=== PATIENT | male | born 1945 | race Asian ===

== ENCOUNTER 2018-09-19 08:27 | Inpatient (IN) | payer OTHER ==
[2018-09-19 08:51] VITALS: BMI 19.6
--- NOTE | 2018-09-19 09:26 | HP ---
CIWA Score Nausea/Vomitin Muscle Tremors: 3 Anxiety: 4-Mod. Anxious/Guarded Agitation: 0-Normal Activity Paroxysmal Sweats: No Perspiration Orientation: 0-Oriented Tacttile Disturbances: 0-None Auditory Disturbances: 0-None Visual Disturbances: 0-None Headache: 2-Mild CIWA-Ar Total Score: 12 - Admission Criteria [facility]ASAS Guidelines: Admission for Medically Managed Detox: Requires at least one of the followin. CIWA greater than 12 2. Seizures within the past 24 hours 3. Delirium tremens within the past 24 hours 4. Hallucinations within the past 24 hours 5. Acute intervention needed for co occurring medical disorder 6. Acute intervention needed for co occurring psychiatric disorder 7. Severe withdrawal that cannot be handled at a lower level of care (continued vomiting, continued diarrhea, abnormal vital signs) requiring intravenous medication and/or fluids 8. Patient presents the following: CIWA greater than 12 Admission Criteria Met: Admission criteria met Admission ROS [facility] - HPI Chief Complaint: The says I drink too much, I need help - she is right, I am here to stop drinking. I am a drunkard. Allergies/Adverse Reactions: Allergies Allergy/AdvReac Type Severity Reaction Status Date / Time No Known Allergies Allergy Verified 09/19/18 09:07 History of Present Illness: 73 yo gentleman here for detox from alcohol. First time in detox. No seizures but does have black outs. States he is lonely where he now lives and drinks. States he does fall 'alot' from drinking. States he drinks first thing in the morning so he doesn't shake too much or feel sick. Exam Limitations: Clinical Condition - Ebola screening Have you been sick,other than usual withdrawal symptoms: No - Review of Systems Constitutional: Loss of Appetite, Malaise, Changes in sleep, Unintentional Wgt. Loss EENT: reports: Blurred Vision Respiratory: reports: SOB with Exertion Cardiac: reports: No Symptoms Reported GI: reports: Poor Appetite, Poor Fluid Intake, Indigestion, Abdominal cramping : reports: Frequency Musculoskeletal: reports: No Symptoms Reported Integumentary: reports: Dryness Neuro: reports: Headache, Tremors Endocrine: reports: No Symptoms Reported Hematology: reports: No Symptoms Reported Psychiatric: reports: Judgement Intact, Mood/Affect Appropiate, Orientated x3, Anxious Other Systems: Reviewed and Negative Patient History - Patient Medical History Hx Asthma: No Hx Chronic Obstructive Pulmonary Disease (COPD): Yes Hx Cancer: No Hx Cardiac Disorders: No Hx Hypertension: No Hx Hypercholesterolemia: No Hx Pacemaker: No HX Cerebrovascular Accident: No Hx Seizures: No Hx Diabetes: No Hx Gastrointestinal Disorders: No Hx Liver Disease: Yes ('there might be something wrong there from the drinking') Hx Genitourinary Disorders: No Hx Sexually Transmitted Disorders: No Hx Renal Disease (ESRD): No Hx Thyroid Disease: No Hx Human Immunodeficiency Virus (HIV): No Hx Hepatitis C: No Hx Depression: No (no meds, no hospitalizations, ) Hx Suicide Attempt: No (denies) Hx Bipolar Disorder: No Hx Schizophrenia: No - Patient Surgical History Past Surgical History: No Other Surgical History: one scalp stitch from a fall - PPD History Previous Implant?: No Implanted On Prior [facility] Admission?: No PPD to be Administered?: Yes - Reproductive History Patient is a Female of Child Bearing Age (11 -55 yrs old): No (male) - Smoking Cessation Smoking history: Current every day smoker Have you smoked in the past 12 months: Yes Aproximately how many cigarettes per day: 3 Initiated information on smoking cessation: Yes 'Breaking Loose' booklet given: 09/19/18 (give on floor) - Substance & Tx. History Hx Alcohol Use: Yes Hx Substance Use: No Substance Use Type: Alcohol Hx Substance Use Treatment: No - Substances Abused Alcohol Route: Oral Frequency: Daily Amount used: 1/2 GALLON VODKA AND OLIVIA Age of first use: 31 Date of Last Use: 09/18/18 Family Disease History - Family Disease History Family Disease History: Other: Father ( - sepsis), Mother ( - Alzheimers), Brother (two living, two (not sure why)), Sister (six living), Daughter (two - adult - healthy) Admission Physical Exam [facility] - Vital Signs Vital Signs: Vital Signs - 24 hr 09/19/18 08:48 Temperature 97.7 F Pulse Rate 100 H Respiratory 18 Rate Blood Pressure 152/96 - Physical General Appearance: Yes: Nourished, Appropriately Dressed, Mild Distress, Thin, Tremorous, Anxious HEENTM: Yes: EOMI, Hearing grossly Normal, Normocephalic, Normal Voice, Pharynx Normal Respiratory: Yes: No Respiratory Distress, Rhonchi Neck: Yes: No masses,lesions,Nodules, Supple Breast: Yes: Breast Exam Deferred Cardiology: Yes: Regular Rhythm, Regular Rate Abdominal: Yes: Flat, Soft Genitourinary: Yes: Frequency Back: Yes: Normal Inspection Musculoskeletal: Yes: full range of Motion, Gait Steady Extremities: Yes: Normal Inspection, Non-Tender Neurological: Yes: Fully Oriented, Alert, Motor Strength 5/5, Normal Mood/Affect , Normal Response Integumentary: Yes: Normal Color, Dry, Warm Lymphatic: Yes: Within Normal Limits - Diagnostic (1) Alcohol dependence with uncomplicated withdrawal Current Visit: Yes Status: Chronic (2) Nicotine dependence Current Visit: Yes Status: Chronic Qualifiers: Nicotine product type: cigarettes Substance use status: uncomplicated Qualified Code(s): F17.210 - Nicotine dependence, cigarettes, uncomplicated (3) Dehydration Current Visit: Yes Status: Chronic Cleared for Admission [facility] - Detox or Rehab [facility] Level of Care: Medically Managed Detox Regimen/Protocol: Librium S Breath Alcohol Content Breath Alcohol Content: 0.150 Urine Drug Screen - Results Drug Screen Negative: No Urine Drug Screen Results: BAR-Barbiturates
[2018-09-19] MEDS ORDERED: guaiFENesin/D-METHORPHAN HB 10 ML UNIT-DOSE CUPS PO PRN (09:37)
[2018-09-19] MEDS ORDERED: MAGNESIUM HYDROX 2400MG/30ML ORAL SUSPENSION 30 ML CUP PO PRN (09:37)
[2018-09-19] MEDS ORDERED: ACETAMINOPHEN 325 MG TABLET (FP) PO PRN (09:37)
[2018-09-19] MEDS ORDERED: LOPERAMIDE HCL 2 MG CAPSULE PO PRN (09:37)
[2018-09-19] MEDS ORDERED: chlordiazePOXIDE HCL 25 MG CAPSULE PO PRN (09:37)
[2018-09-19] MEDS ORDERED: P-EPHED 60MG/TRIPROLIDI 2.5MG TABLET PO PRN (09:37)
[2018-09-19] MEDS ORDERED: MENTHOL/PHENOL 1 EACH UD MM PRN (09:37)
[2018-09-19] MEDS ORDERED: MAGNESIUM CITRATE 300 ML BOTTLE PO PRN (09:37)
[2018-09-19] MEDS ORDERED: MAG HYDROX/AL HYDROX/SIMETH 30 ML UNIT-DOSE CUP PO PRN (09:37)
[2018-09-19] MEDS ORDERED: IBUPROFEN 400 MG TABLET (FP) PO PRN (09:37)
[2018-09-19] MEDS ORDERED: NICOTINE POLACRILEX 4 MG GUM BUC PRN (09:37)
[2018-09-19] MEDS: PRENATAL VITAMINS W/ FOLIC ACID TABLET (FP) PO SCH (11:33)
--- NOTE | 2018-09-19 15:42 | EKG ---
Test Reason : Blood Pressure : / mmHG Vent. Rate : 093 BPM Atrial Rate : 093 BPM P-R Int : 112 ms QRS Dur : 074 ms QT Int : 352 ms P-R-T Axes : 038 057 077 degrees QTc Int : 437 ms NORMAL SINUS RHYTHM NORMAL ECG NO PREVIOUS ECGS AVAILABLE Confirmed by FELIPE ORTEGA MD ([id number]) on 09/19/2018 3:42:18 PM Referred By: GARY WARREN Confirmed By:FELIPE ORTEGA MD
[2018-09-19] MEDS: chlordiazePOXIDE HCL 25 MG CAPSULE PO SCH ×2 (17:29→22:15)
[2018-09-19] MEDS ORDERED: MELATONIN 5 MG TABLETS PO PRN (22:00)
[2018-09-19] MEDS: THIAMINE HCL 100 MG TABLET (FP) PO SCH (22:15)
[2018-09-20] MEDS: chlordiazePOXIDE HCL 25 MG CAPSULE PO SCH ×4 (06:42→22:15)
[2018-09-20] MEDS: PRENATAL VITAMINS W/ FOLIC ACID TABLET (FP) PO SCH (10:08)
[2018-09-20 10:29] LABS: ALBUMIN 4.4 g/dl (3.4-5.0); ALK PHOS 117 U/L (45-117); ANION GAP 14 MMOL/L (8-16); BILIRUBIN,TOTAL 5.2 mg/dL (0.2-1); BLOOD UREA NITROGEN 12 mg/dL (7-18); CALCIUM 8.8 mg/dL (8.5-10.1); CHLORIDE 96 mmol/L (98-107); CO2 27 mmol/L (21-32); CREATININE 0.9 mg/dL (0.55-1.3); GLUCOSE,RANDOM 81 mg/dL (74-106); POTASSIUM 4.1 mmol/L (3.5-5.1); SGOT/AST 74 U/L (15-37); SGPT/ALT 24 U/L (13-61); SODIUM 137 mmol/L (136-145); TOT PROT 7.8 g/dl (6.4-8.2)
[2018-09-20 10:56] LABS: HEMATOCRIT 49.5 % (35.4-49); HEMOGLOBIN 16.2 GM/dL (11.7-16.9); MCH 32.1 pg (25.7-33.7); MCHC 32.7 g/dl (32.0-35.9); MEAN CELL VOLUME 98.2 fl (80-96); MEAN PLT VOLUME 8.3 fl (7.5-11.1); PLATELET COUNT 197 K/MM3 (134-434); RBC 5.04 M/mm3 (4.00-5.60); RDW 17.2 % (11.9-15.9); WHITE BLOOD COUNT 6.5 K/mm3 (4.0-10.0)
--- NOTE | 2018-09-20 11:18 | PN ---
[facility] CIWA - CIWA Score Nausea/Vomitin-Mild Nausea/No Vomiting Muscle Tremors: 3 Anxiety: 3 Agitation: 3 Paroxysmal Sweats: 1-Minimal Palms Moist Orientation: 1-Uncertain about Date Tacttile Disturbances: 0-None Auditory Disturbances: 0-None Visual Disturbances: 0-None Headache: 2-Mild CIWA-Ar Total Score: 14 S Progress Note (SOAP) Subjective: tremor gi distress sweat restlessness Objective: 09/20/18 11:18 Vital Signs Temperature 98.1 F 09/20/18 09:25 Pulse Rate 90 09/20/18 09:25 Respiratory Rate 18 09/20/18 09:25 Blood Pressure 135/70 09/20/18 09:25 O2 Sat by Pulse Oximetry (%) Laboratory Last Values WBC 6.5 K/mm3 (4.0-10.0) 09/20/18 07:40 RBC 5.04 M/mm3 (4.00-5.60) 09/20/18 07:40 Hgb 16.2 GM/dL (11.7-16.9) 09/20/18 07:40 Hct 49.5 % (35.4-49) H 09/20/18 07:40 MCV 98.2 fl (80-96) H 09/20/18 07:40 MCH 32.1 pg (25.7-33.7) 09/20/18 07:40 MCHC 32.7 g/dl (32.0-35.9) 09/20/18 07:40 RDW 17.2 % (11.9-15.9) H 09/20/18 07:40 Plt Count 197 K/MM3 (134-434) 09/20/18 07:40 MPV 8.3 fl (7.5-11.1) 09/20/18 07:40 Sodium 137 mmol/L (136-145) 09/20/18 07:40 Potassium 4.1 mmol/L (3.5-5.1) 09/20/18 07:40 Chloride 96 mmol/L (98-107) L 09/20/18 07:40 Carbon Dioxide 27 mmol/L (21-32) 09/20/18 07:40 Anion Gap 14 MMOL/L (8-16) 09/20/18 07:40 BUN 12 mg/dL (7-18) 09/20/18 07:40 Creatinine 0.9 mg/dL (0.55-1.3) 09/20/18 07:40 Creat Clearance w eGFR > 60 (>60) 09/20/18 07:40 Random Glucose 81 mg/dL (74-106) 09/20/18 07:40 Calcium 8.8 mg/dL (8.5-10.1) 09/20/18 07:40 Total Bilirubin 5.2 mg/dL (0.2-1) H 09/20/18 07:40 AST 74 U/L (15-37) H 09/20/18 07:40 ALT 24 U/L (13-61) 09/20/18 07:40 Alkaline Phosphatase 117 U/L (45-117) 09/20/18 07:40 Total Protein 7.8 g/dl (6.4-8.2) 09/20/18 07:40 Albumin 4.4 g/dl (3.4-5.0) 09/20/18 07:40 lab noted Assessment: 09/20/18 11:18 withdrawal sx Plan: continue detox
[2018-09-20] MEDS: THIAMINE HCL 100 MG TABLET (FP) PO SCH (22:15)
[2018-09-21] MEDS: chlordiazePOXIDE HCL 25 MG CAPSULE PO SCH ×2 (06:22→10:13)
--- NOTE | 2018-09-21 07:37 | PN ---
[facility] Progress Note Note: Patient fell trying to retrieve a paper from his tray at the hallway in front of his room. No injury, bruises, or abrasion noted or reported at this time. Patent denies pain or discomfort, rates pain at 0/10. Fall was witnessed by Ms. Mahendra Hanley Fall protocol #2 initiated. Tylenol 325mg 2 tablets oral Q6H as needed. Ice pack to bilateral knee as ordered. Monitor patient
[2018-09-21] MEDS: PRENATAL VITAMINS W/ FOLIC ACID TABLET (FP) PO SCH (10:13)
--- NOTE | 2018-09-21 11:08 | PN ---
[facility] CIWA - CIWA Score Nausea/Vomitin-No Nausea/No Vomiting Muscle Tremors: 3 Anxiety: 3 Agitation: 3 Paroxysmal Sweats: 3 Orientation: 0-Oriented Tacttile Disturbances: 0-None Auditory Disturbances: 0-None Visual Disturbances: 0-None Headache: 0-None Present CIWA-Ar Total Score: 12 S Progress Note (SOAP) Subjective: agitation sweats shakes interrupted sleep Objective: 09/21/18 11:09 Vital Signs Temperature 98.1 F 09/21/18 09:08 Pulse Rate 18 L 09/21/18 09:08 Respiratory Rate 110 H 09/21/18 09:08 Blood Pressure 123/80 09/21/18 09:08 O2 Sat by Pulse Oximetry (%) Laboratory Tests 09/20/18 09/20/18 09/20/18 07:40 07:40 07:40 WBC 6.5 RBC 5.04 Hgb 16.2 Hct 49.5 H MCV 98.2 H MCH 32.1 MCHC 32.7 RDW 17.2 H Plt Count 197 MPV 8.3 Sodium 137 Potassium 4.1 Chloride 96 L Carbon Dioxide 27 Anion Gap 14 BUN 12 Creatinine 0.9 Creat Clearance w eGFR > 60 Random Glucose 81 Calcium 8.8 Total Bilirubin 5.2 H AST 74 H ALT 24 Alkaline Phosphatase 117 Total Protein 7.8 Albumin 4.4 RPR Titer Nonreactive aaox3 ambulating no acute distress Assessment: 09/21/18 11:09 withdrawal sx Plan: continue detox increase fluids
[2018-09-21] MEDS: chlordiazePOXIDE 5 MG CAPSULE PO SCH ×2 (16:33→22:21)
[2018-09-21] MEDS: THIAMINE HCL 100 MG TABLET (FP) PO SCH (22:21)
[2018-09-22] MEDS: chlordiazePOXIDE 5 MG CAPSULE PO SCH ×2 (05:19→10:24)
--- NOTE | 2018-09-22 09:50 | PN ---
[facility] Progress Note (SOAP) Subjective: INTERRUPTED SLEEP, SWEATS, SHAKES Objective: 09/22/18 09:48 Vital Signs Temperature 98.2 F 09/22/18 09:15 Pulse Rate 99 H 09/22/18 09:15 Respiratory Rate 16 09/22/18 09:15 Blood Pressure 128/83 09/22/18 09:15 O2 Sat by Pulse Oximetry (%) Laboratory Tests 09/20/18 09/20/18 09/20/18 07:40 07:40 07:40 WBC 6.5 RBC 5.04 Hgb 16.2 Hct 49.5 H MCV 98.2 H MCH 32.1 MCHC 32.7 RDW 17.2 H Plt Count 197 MPV 8.3 Sodium 137 Potassium 4.1 Chloride 96 L Carbon Dioxide 27 Anion Gap 14 BUN 12 Creatinine 0.9 Creat Clearance w eGFR > 60 Random Glucose 81 Calcium 8.8 Total Bilirubin 5.2 H AST 74 H ALT 24 Alkaline Phosphatase 117 Total Protein 7.8 Albumin 4.4 RPR Titer Nonreactive PT AOX3 IN NAD SITTING UP IN CHAIR Assessment: 09/22/18 09:48 WITHDRAWAL SX;S Plan: CONT. DETOX INCREASE FLUIDS D/C IN AM
[2018-09-22] MEDS: PRENATAL VITAMINS W/ FOLIC ACID TABLET (FP) PO SCH (10:24)
[2018-09-22] MEDS: chlordiazePOXIDE HCL 10 MG CAPSULE PO SCH ×2 (17:44→23:02)
[2018-09-22] MEDS: THIAMINE HCL 100 MG TABLET (FP) PO SCH (23:05)
[2018-09-23] MEDS: chlordiazePOXIDE HCL 10 MG CAPSULE PO SCH (05:18)
--- NOTE | 2018-09-23 08:57 | DS ---
[facility] Detox Discharge Summary Admission Date: 09/19/18 Discharge Date: 09/23/18 - History Present History: Alcohol Dependence - Physical Exam Results Vital Signs: Vital Signs Temperature 98.1 F 09/23/18 05:54 Pulse Rate 90 09/23/18 05:54 Respiratory Rate 16 09/23/18 05:54 Blood Pressure 121/69 09/23/18 05:54 O2 Sat by Pulse Oximetry (%) - Treatment Hospital Course: Detox Protocol Followed, Detoxed Safely, Responded well, Discharged Condition Good, Rehab Referral Accepted - Medication Discharge Medications: Ambulatory Orders NK [No Known Home Medication] 09/19/18 - Diagnosis (1) Alcohol dependence with uncomplicated withdrawal Current Visit: Yes Status: Chronic (2) Dehydration Current Visit: Yes Status: Resolved (3) Nicotine dependence Current Visit: Yes Status: Chronic Qualifiers: Nicotine product type: cigarettes Substance use status: uncomplicated Qualified Code(s): F17.210 - Nicotine dependence, cigarettes, uncomplicated - AMA Did Patient Leave Against Medical Advice: No (REFERRED TO OUTPATIENT NEW FOCUS)
[2018-09-23 09:29] VITALS: BP 132/63; PULSE 87; TEMP 98.6
== END 2018-09-23 09:44 | disposition home or self-care (01) | DRG 897 ==
LOC: YASAS 08:27 → Y6N 09:15
PROC: HZ2ZZZZ Detoxification Services for Substance Abuse Treatment (ICD-10-PCS; principal; 2018-09-19)
DX: F10.230 Alcohol dependence with withdrawal, uncomplicated (principal); F17.210 Nicotine dependence, cigarettes, uncomplicated; E86.0 Dehydration; J44.9 Chronic obstructive pulmonary disease, unspecified; W19.XXXA Unspecified fall, initial encounter; Y93.89 Activity, other specified; Y92.232 Corridor of hospital as the place of occurrence of the external cause
CPT/HCPCS: 36415; 71046-TC-FY; 80053; 85027; 86593; 93005; 93010